=== PATIENT | male | born 1945 | race Caucasian/White ===

== ENCOUNTER 2017-05-21 08:41 | Observation (INO) | payer OTHER ==
--- NOTE | 2017-05-21 08:46 | EDPHY ---
H & P Time Seen by Provider: 05/21/17 08:46 - Medical/Surgical History Hx Diabetes: Yes - Social History Smoking Status: Never smoked Constitutional: Initial Vital Signs Temperature (C) 37 C 05/21/17 08:41 Heart Rate 73 05/21/17 08:41 Respiratory Rate 20 05/21/17 08:41 Blood Pressure 139/87 H 05/21/17 08:41 O2 Sat (%) 98 05/21/17 08:41 O2 Delivery Mode Room Air Allergies/Adverse Reactions: No Known Allergies Allergy (Verified 05/21/17 08:45) Home Medications: Medication Instructions Recorded Carbidopa/Levodopa 0.5 each PO BID 04/11/16 [Carbidopa-Levodopa 25-250 Tab] Donepezil HCl [Aricept] 5 mg PO 05/21/17 Ondansetron Odt [Zofran Odt 4 mg 4 mg PO Q4 PRN #10 tab 05/21/17 (RX)] Tamsulosin HCl [Flomax 0.4 MG (*)] 0.4 mg PO DAILY #10 cap 05/21/17 oxyCODONE IR [Oxycodone Ir (*)] 5 - 10 mg PO Q6 PRN #20 tab 05/21/17 Medical Decision Making - Diagnostics Imaging Results: Imaging Impressions Abdomen/Pelvis CT 05/21/17 09:12 Impression: 1. Moderate right-sided hydronephrosis secondary to right mid ureteral calculus at the level of the iliac crest measuring 4 x 3 mm transversely by 7 mm longitudinally. 2. Small bilateral nonobstructive renal calculi as detailed above. 3. Bilateral renal cysts. 4. Enlarged prostate. 5. Uncomplicated diverticulosis. Findings discussed with Cruz Wang MD at 9:49 hour, 05/21/2017. Attention: This CT examination is specifically designed to evaluate patients who are clinically suspected of having acute obstructive uropathy. This examination does not use radiographic contrast, and as such, provides only a limited evaluation of the abdomen, pelvis and retroperitoneum. If there is further clinical suspicion for pathological conditions other than obstructive uropathy, a complete CT evaluation of the abdomen and pelvis utilizing intravenous, oral, and rectal contrast should be considered. Imaging: Discussed imaging studies w/ calliope player Radiologist, I viewed and interpreted images myself ED Course/Re-evaluation: CHIEF COMPLAINT: Flank pain HISTORY OF PRESENT ILLNESS: The patient is a 71 y/o male, with a history of dementia and kidney stones, arriving with his complaining of severe right flank pain worsening over the last week. His pain waxes and wanes, but overall has been increasing in intensity since onset. He has been self-dosing aspirin for pain, but due to his short-term dementia it is not clear how much he has used. He has developed associated vomiting over the last day. He denies abdominal pain. He has a spinal surgery one year ago, but states his symptoms today are not similar. History is limited by patient's short-term dementia. REVIEW OF SYSTEMS: A 10 point review of systems was performed and is negative with the exception of the elements mentioned in the history of present illness. PHYSICAL EXAM: HR, BP, O2 Sat, RR. Temp noted General Appearance: Alert, well-hydrated, appropriate, and uncomfortable- appearing. Head: Atraumatic without scalp tenderness or obvious injury Eyes: Pupils equal, round, reactive to light and accommodation, EOMI, no trauma , no injection. Nose: Atraumatic, no rhinorrhea, clear. Throat: There is no erythema or exudates, no lesions, normal tonsils, mucus membranes moist. Neck: Supple,nontender, no lymphadenopathy. Respiratory: No retractions, no distress, no wheezes, and no accessory muscle use. Lungs are clear to auscultation bilaterally. Cardiovascular: Regular rate and rhythm, no murmurs, rubs, or gallops. Good capillary refill all extremities. Gastrointestinal: Abdomen is soft, mild RLQ tenderness, non-distended, no masses, no rebound, no guarding, no peritoneal signs. Musculoskeletal: Normal active ROM of all extremities, atraumatic. Right CVA tenderness. Neurological: Alert, appropriate, and interactive. Nonfocal neuro exam. Skin: No rashes, good turgor, no nodules on palpation. Past medical history: Short-term dementia, kidney stones Past surgical history: spinal surgery Family history: noncontributory Social history: at bedside. Urologist: Dr. Mancilla DIAGNOSTICS/PROCEDURES/CRITICAL CARE TIME: Abdominal CT: right side 7mm ureteral stone DIFFERENTIAL DIAGNOSIS: The differential diagnosis for the patient's flank pain and renal insufficiency included but was not limited to pre or post renal obstruction, heavy aspirin use, right ureteral stone, musculoskeletal causes, kidney stone, pyelonephritis, shingles, diverticulitis, appendicitis, and aortic aneurysm. MEDICAL DECISION MAKING: This is a 71 y/o male with a history of dementia and prior kidney stones who presents with a one-week history of worsening right flank pain. He is quite uncomfortable on exam with right CVA and RLQ tenderness. He is afebrile. Symptoms are most consistent with a kidney stone, but I also have concern for other intraabdominal process. Plan for IV, labs including salicylate level, UA, abdominal CT, and symptom management. 1mg IV Dilaudid, 4mg IV Zofran, 1L IV NS administered. CT shows right ureteral stone. I reassessed the patient and discussed work up. He is much more comfortable since medication administration. He has borderline renal insufficiency that could be from excessive aspirin use or obstructed ureter. I've advised him to discontinue aspirin and other NSAIDs for this pain. He will be given standard kidney stone care instructions and referral to urology. Scripts for OxyIR, Zofran, and Flomax. Return precautions given. He and his are comfortable with this plan. 1315: Consulted with Dr. Murphy, urologist. He will see patient as an outpatient in his clinic. 1330: As patient was preparing for discharge, he began to complain of intractable 10/10 pain and is unable to walk. He will require admission. Dr. Bender accepts admission. - Data Points Laboratory Results: Laboratory Results 05/21/17 08:55 05/21/17 08:55 05/21/17 05/21/17 05/21/17 12:35 08:55 08:55 WBC 7.52 10^3/uL 10^3/uL (3.80-9.50) RBC 5.06 10^6/uL 10^6/uL (4.40-6.38) Hgb 16.3 g/dL g/dL (13.7-17.5) Hct 48.8 % % (40.0-51.0) MCV 96.4 fL fL (81.5-99.8) MCH 32.2 pg pg (27.9-34.1) MCHC 33.4 g/dL g/dL (32.4-36.7) RDW 14.3 % % (11.5-15.2) Plt Count 182 10^3/uL 10^3/uL (150-400) MPV 9.0 fL fL (8.7-11.7) Neut % (Auto) 61.5 % % (39.3-74.2) Lymph % (Auto) 28.2 % % (15.0-45.0) [place] % (Auto) 7.6 % % (4.5-13.0) Eos % (Auto) 1.5 % % (0.6-7.6) Baso % (Auto) 0.8 % % (0.3-1.7) Nucleat RBC Rel Count 0.0 % % (0.0-0.2) Absolute Neuts (auto) 4.63 10^3/uL 10^3/uL (1.70-6.50) Absolute Lymphs (auto) 2.12 10^3/uL 10^3/uL (1.00-3.00) Absolute Monos (auto) 0.57 10^3/uL 10^3/uL (0.30-0.80) Absolute Eos (auto) 0.11 10^3/uL 10^3/uL (0.03-0.40) Absolute Basos (auto) 0.06 10^3/uL 10^3/uL (0.02-0.10) Absolute Nucleated RBC 0.00 10^3/uL 10^3/uL (0-0.01) Immature Gran % 0.4 % % (0.0-1.1) Immature Gran # 0.03 10^3/uL 10^3/uL (0.00-0.10) Sodium 141 mEq/L mEq/L (134-144) Potassium 3.9 mEq/L mEq/L (3.5-5.2) Chloride 105 mEq/L mEq/L (97-110) Carbon Dioxide 21 mEq/l L mEq/l (22-31) Anion Gap 15 mEq/L mEq/L (8-16) BUN 26 mg/dL H mg/dL (7-23) Creatinine 1.5 mg/dL H mg/dL (0.7-1.3) Estimated GFR 46 Glucose 177 mg/dL H mg/dL (70-100) Calcium 9.6 mg/dL mg/dL (8.5-10.4) Urine Color YELLOW Urine Appearance CLEAR Urine pH 5.0 (5.0-7.5) Ur Specific [place] 1.026 (1.002-1.030) Urine Protein NEGATIVE (NEGATIVE) Urine Ketones TRACE H (NEGATIVE) Urine Blood 1+ H (NEGATIVE) Urine Nitrate NEGATIVE (NEGATIVE) Urine Bilirubin NEGATIVE (NEGATIVE) Urine Urobilinogen NEGATIVE EU EU (0.2-1.0) Ur Leukocyte Esterase NEGATIVE (NEGATIVE) Urine RBC 15-25 /hpf H /hpf (0-3) Urine WBC 1-3 /hpf /hpf (0-3) Ur Epithelial Cells NONE SEEN /lpf /lpf (NONE-1+) Urine Mucus TRACE /lpf /lpf (NONE-1+) Urine Glucose NEGATIVE (NEGATIVE) Salicylates 1.8 mg/dL L mg/dL (2.0-20.0) Medications Given: Discontinued Medications Hydromorphone HCl (Dilaudid) 1 mg IVP EDNOW ONE Stop: 05/21/17 09:11 Last Admin: 05/21/17 09:23 Dose: 1 mg Hydromorphone HCl (Dilaudid) 1 mg IVP EDNOW ONE Stop: 05/21/17 13:07 Last Admin: 05/21/17 13:11 Dose: 1 mg Sodium Chloride (Ns) 1,000 mls @ 0 mls/hr IV ONCE ONE PRN Reason: Wide Open Stop: 05/21/17 09:32 Last Admin: 05/21/17 09:36 Dose: 1,000 mls Ondansetron HCl (Zofran) 4 mg IVP EDNOW ONE Stop: 05/21/17 09:11 Last Admin: 05/21/17 09:22 Dose: 4 mg Ondansetron HCl (Zofran) 4 mg IVP EDNOW ONE Stop: 05/21/17 12:47 Last Admin: 05/21/17 13:12 Dose: Not Given Departure - Departure Disposition: [facility] Acute Clinical Impression: Kidney stone on right side, Intractable pain Condition: Fair Instructions: Kidney Stones (ED), How to Strain Your Urine (ED) Additional Instructions: 1. Do not take aspirin or ibuprofen/Motrin anymore for this pain. 2. OxyIR as needed for severe pain 3. Flomax as directed 4. Zofran as needed for nausea 5. Strain urine as directed 6. Return to the Emergency Department for intractable pain, fever or vomiting. 7. Please contact the urologist you have been referred to schedule a follow-up visit or with the [place] urologist. Referrals: NOT,SURE [Other] - As per Instructions Jose Mancilla MD [Medical Doctor] - As per Instructions Prescriptions: Ondansetron Odt [Zofran Odt 4 mg (RX)] 4 mg PO Q4 PRN #10 tab PRN Reason: Nausea/Vomiting, Use 1st oxyCODONE IR [Oxycodone Ir (*)] 5 - 10 mg PO Q6 PRN #20 tab PRN Reason: Pain, Severe Tamsulosin HCl [Flomax 0.4 MG (*)] 0.4 mg PO DAILY #10 cap Report Scribed for: Cruz Wang Report Scribed by: Mere Zayas Date of Report: 05/21/17 Time of Report: 09:19
[2017-05-21] MEDS ORDERED: HYDROmorphONE/DILAUDID 1 MG/ML SYR IVP ONE ×2 (09:10→13:06)
[2017-05-21] MEDS ORDERED: ONDANSETRON 4 MG/2 ML VIAL IVP ONE (09:10)
[2017-05-21 09:14] LABS: % IMMATURE GRANULYOCYTES 0.4 % (0.0-1.1); ABSOLUTE IMMATURE GRANULOCYTES 0.03 10^3/uL (0.00-0.10); ADD DIFF? NO; ADD MORPH? NO; ADD SCAN? NO; ATYPICAL LYMPHOCYTE FLAG 10 (0-99); FRAGMENT RBC FLAG 0 (0-99); HEMATOCRIT 48.8 % (40.0-51.0); HEMOGLOBIN 16.3 g/dL (13.7-17.5); LEFT SHIFT FLG 0 (0-99); LIPEMIA HEMOLYSIS FLAG 80 (0-99); MEAN CELL HEMOGLOBIN 32.2 pg (27.9-34.1); MEAN CELL HEMOGLOBIN CONCENTR. 33.4 g/dL (32.4-36.7); MEAN CELL VOLUME 96.4 fL (81.5-99.8); PLATELET CLUMPS FLAG 0 (0-99); PLATELET COUNT 182 10^3/uL (150-400); RED BLOOD CELL COUNT 5.06 10^6/uL (4.40-6.38); RED CELL DISTRIBUTION WIDTH 14.3 % (11.5-15.2)
[2017-05-21 09:28] LABS: ANION GAP 15 mEq/L (8-16); CARBON DIOXIDE 21 mEq/l (22-31); CHLORIDE 105 mEq/L (97-110); CREATININE 1.5 mg/dL (0.7-1.3); GLOMERULAR FILTRATION RATE 46; GLUCOSE 177 mg/dL (70-100); POTASSIUM 3.9 mEq/L (3.5-5.2); SODIUM 141 mEq/L (134-144)
[2017-05-21 09:29] LABS: CALCIUM 9.6 mg/dL (8.5-10.4); SALICYLATE 1.8 mg/dL (2.0-20.0)
[2017-05-21] MEDS ORDERED: NS 1,000 ML IV ONE (09:31)
[2017-05-21] MEDS: ONDANSETRON 4 MG/2 ML VIAL IVP ONE ×2 (12:50→13:12)
[2017-05-21 12:52] LABS: COLOR YELLOW; LEUKOCYTE ESTERASE,URINE NEGATIVE (NEGATIVE); NITRITE,URINE NEGATIVE (NEGATIVE)
[2017-05-21 12:56] LABS: MUCUS TRACE /lpf (NONE-1+); RBC,URINE 15-25 /hpf (0-3)
[2017-05-21] MEDS ORDERED: HYDROmorphONE/DILAUDID 1 MG/ML SYR IVP PRN ×2 (13:04→13:42)
[2017-05-21] MEDS ORDERED: ONDANSETRON 4 MG/2 ML VIAL IVP PRN (13:41)
[2017-05-21] MEDS ORDERED: ONDANSETRON DISINTEGRATING 4 MG TAB PO PRN (13:41)
[2017-05-21] MEDS ORDERED: ACETAMINOPHEN 325 MG TAB PO PRN (13:41)
[2017-05-21] MEDS: NS 1,000 ML IV SCH ×2 (14:33→23:45)
--- NOTE | 2017-05-21 15:14 | GHP ---
[f rep st] HISTORY AND PHYSICAL DATE OF ADMISSION: 05/21/2017 CHIEF COMPLAINT: Right flank pain. HISTORY OF PRESENT ILLNESS: Patient is a 71-year-old male, with history of lumbar stenosis, dementi a and prior kidney stones arriving with his complaining of severe right flank pain. This has p rogressed over the last week. He says it waxes and wanes but is overall very sharp. He has been us ing aspirin for pain relief up to 4 times a day. He had some mild nausea over the past 24 hours. H e denies dysuria, hematuria. No fevers, chills or sweats. No diarrhea. REVIEW OF SYSTEMS: I completed a 10-point review of systems, negative except as noted in HPI. PAST MEDICAL HISTORY: 1. L4 through S1 lumbar fusion. 2. Sciatica. 3. Lumbar stenosis. 4. Kidney stones. 5. Dementia. FAMILY HISTORY: Mother of breast cancer. Father had Parkinson's. SOCIAL HISTORY: Lives in [place] with his Dee. He has been almost 50 years. Has 2 daughters. No illicits, tobacco or alcohol. Was a nurse in [place]. ALLERGIES: None. PHYSICAL EXAM: VITAL SIGNS: Temperature 36.2, blood pressure 138/78, heart rate 70s, respirations 17, 98% on room air. GENERAL: Patient is lying in bed, in no acute distress. HEENT: Pupils are s mall, but round, reactive. Mildly dry mucous membranes. CV: Regular rate and rhythm. No murmurs, gallops, or rubs. LUNGS: Clear to auscultation bilaterally. ABDOMEN: Soft, nontender, nondisten ded. : No suprapubic tenderness, but right flank pain with palpation. NEURO: [address] PSYCH: Alert and oriented x3. Somnolent with pain medications. LABS: Sodium 141, potassium 3.9, chloride 105, carbon dioxide 21, BUN 26, creatinine is 1.5 with ba seline of 1. Glucose 177, calcium 9.6. UA: +1 blood, 15-25 WBCs. Salicylates 1.8. WBC 7, hemogl obin 16, hematocrit 48, platelets 182. CT abdomen and pelvis: Moderate right-sided hydronephrosis with dilated right ureter to the level o f the iliac crest where there is a mid right ureteral calculus measuring 4 x 3 mm and 7 mm longitudi kirit. Bilateral small renal calculi measuring 1-2 mm, 2 apparent on the right and 3 on the left. There has been an interval increase in size of the dominant cyst in the upper pole of the right kidn ey, now 7.8 cm, previously 6 mm. Enlarged prostate. Uncomplicated diverticulosis. ASSESSMENT AND PLAN: 1. Ureteral calculus at the level of the iliac crest. Pain is currently controlled with IV Dilaudi d given acute kidney injury. There is moderate right-sided hydronephrosis. Dr. Murphy with urology has been consulted. Will hydrate. Continue pain control. 2. Renal cysts, slightly larger in the right pole since previous. 3. Acute flank pain: Secondary to stone. Controlled with IV Dilaudid. No NSAIDs with acute kidne y injury. 4. Acute kidney injury: Baseline creatinine is now 1.5. Query secondary to dehydration. 5. Diet: Regular. 6. Deep venous thrombosis prophylaxis. SCDs. DISPOSITION: Patient warrants observation admission given acute pain secondary to stone. Urology t o consult. Will continue IV opioids and fluids. /[id number]/MODL
[2017-05-21] MEDS ORDERED: ceFAZolin 2 GM/DEXTROSE 100 ML IV ONE (17:17)
[2017-05-21 19:15] LABS: HEMATOCRIT 43.1 % (40.0-51.0); HEMOGLOBIN 14.6 g/dL (13.7-17.5); MEAN CELL HEMOGLOBIN CONCENTR. 33.9 g/dL (32.4-36.7); MEAN CELL VOLUME 97.5 fL (81.5-99.8); RED BLOOD CELL COUNT 4.42 10^6/uL (4.40-6.38); RED CELL DISTRIBUTION WIDTH 14.1 % (11.5-15.2)
[2017-05-21] MEDS: CARBIDOPA/LEVO CR 50 MG/200 MG TAB PO SCH (20:17)
[2017-05-21 20:33] VITALS: RESP 16
[2017-05-21] MEDS ORDERED: DONEPEZIL HCL 5 MG TAB PO SCH (21:00)
--- NOTE | 2017-05-21 21:28 | GCON ---
[f rep st] CONSULTATION DATE OF CONSULTATION: 05/21/2017 REFERRING PHYSICIAN: Brenda Bender MD REASON FOR CONSULTATION: Right ureteral calculus. HISTORY OF PRESENT ILLNESS: I am asked to see this 71-year-old male, who presented to the emergency room with right flank pain, and was found to have an obstructing 3 x 4 x 7 mm right mid ureteral st one. The patient required ongoing pain control, so was admitted for further management. PAST MEDICAL HISTORY: Positive for lumbar stenosis, kidney stones, dementia. FAMILY SOCIAL HISTORY: Noncontributory. EXAM: GENERAL APPEARANCE: Patient is alert, oriented. He is in no acute distress. CHEST: Asymme tric chest wall excursions. Unlabored respirations. HEART: Rate is regular. ABDOMEN: Soft, nont phil. He has no CVA tenderness. EXTREMITIES: No peripheral edema. NEUROLOGIC: No gross neurolo gic deficits. DATA: Review of CT scan showed moderate right-sided hydronephrosis to the iliac crest, where the 4 x 3 x 7 mm stone is identified. He also has some small renal calculi, 1-2 mm, in each kidney. IMPRESSION: Obstructing right ureteral calculus. PLAN: Due to the size of the stone location, with poor probability of passage, and ongoing need for parenteral pain control, options were discussed, and we will proceed with right ureteroscopy laser lithotripsy, stone extraction, and stent placement in the morning, 05/18/2017. /[id number]/MODL
[2017-05-22 06:25] LABS: ANION GAP 10 mEq/L (8-16); CALCIUM 8.9 mg/dL (8.5-10.4); CARBON DIOXIDE 22 mEq/l (22-31); CHLORIDE 109 mEq/L (97-110); CREATININE 1.2 mg/dL (0.7-1.3); GLOMERULAR FILTRATION RATE 60; GLUCOSE 123 mg/dL (70-100); POTASSIUM 4.3 mEq/L (3.5-5.2); SODIUM 141 mEq/L (134-144)
[2017-05-22] MEDS ORDERED: MIDAZOLAM 2 MG/2 ML VIAL IVP ONE (06:59)
[2017-05-22] MEDS ORDERED: IOPAMIDOL (ISOVUE-M 300) 15 ML VIAL ONE (07:02)
--- NOTE | 2017-05-22 07:02 | PDANEPAE ---
ANE History of Present Illness ureteroscopy for R ureteral stone ANE Past Medical History - Cardiovascular History Hx Hypertension: No Hx Arrhythmias: No Hx Chest Pain: No Hx Coronary Artery / Peripheral Vascular Disease: No Hx CHF / Valvular Disease: No Hx Palpitations: No - Pulmonary History Hx COPD: No Hx Asthma/Reactive Airway Disease: No Hx Recent Upper Respiratory Infection: No Hx Oxygen in Use at Home: No Hx Sleep Apnea: Yes Sleep Apnea Screening Result - Last Documented: Positive Pulmonary History Comment: URBAN USES C-PAP. 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 PREV KIDNEY STONES - Liver History Hx Hepatic Disorders: No - Neurological & Psychiatric Hx Hx Neurological and Psychiatric Disorders: Yes Neurological / Psychiatric History Comment: PTSD TREATED WITH ACCUPUNCTURE - Cancer History Hx Cancer: No - Congenital Disorder History Hx Congenital Disorders: No - GI History Hx Gastrointestinal Disorders: Yes Gastrointestinal History Comment: DIVERTICULOSIS. GI ULCER - Other Health History Other Health History: DDD. PERIPHERAL NEUROPATHY. TINITUS. STASIS DERMATITIS /ECZEMA. OSTEOARTHRITIS. ROGER CATARACTS - Chronic Pain History Chronic Pain: Yes (ROGER LEGS,NUMB FEELING) - Surgical History Prior Surgeries: DENTAL EXTRACTION. EPIDURALS ANE Review of Systems - Exercise capacity METS (RN): 4 METS ANE Patient History - Allergies Allergies/Adverse Reactions: No Known Allergies Allergy (Verified 05/21/17 08:45) - Home Medications Home Medications: Acetaminophen [Tylenol 325mg (*)] 325 mg PO Q6 PRN 05/21/17 [Last Taken Unknown] Aspirin [Aspirin 325 mg (*)] 325 mg PO DAILY PRN 05/21/17 [Last Taken 05/21/17] Carbidopa/Levo Cr 50/200Mg [SINEMET CR 50/200 MG (*)] 0.5 tab PO BID 05/21/17 [ Last Taken 05/20/17] Cholecalciferol Vit D3 [Vitamin D3 (*)] 2,000 units PO DAILY 05/21/17 [Last Taken 05/21/17] Donepezil HCl [Aricept] 5 mg PO HS 05/21/17 [Last Taken 05/20/17] Herbals/Supplements -Info Only 1 ea PO DAILY 05/21/17 [Last Taken Unknown] - NPO status NPO Since - Liquids (Date): 05/21/17 NPO Since - Liquids (Time): 00:00 NPO Since - Solids (Date): 05/21/17 NPO Since - Solids (Time): 00:00 - Anes Hx Anes Hx: no prior problems - Smoking Hx Smoking Status: Never smoked Marijuana use: No - Alcohol Use Alcohol Use: Rarely ANE Labs/Vital Signs - Labs Result Diagrams: 05/21/17 19:05 05/22/17 05:41 - Vital Signs Blood Pressure: 95/59 Heart Rate: 86 Respiratory Rate: 16 O2 Sat (%): 93 Height: 165.1 cm Weight: 74 kg ANE Physical Exam - Airway Mallampati Score: Class 2 Mouth exam: poor dentition - Pulmonary Pulmonary: no respiratory distress - Cardiovascular Cardiovascular: regular rate and rhythym - ASA Status ASA Status: II ANE Anesthesia Plan Anesthesia Plan: GA w LMA (all questions answered)
--- NOTE | 2017-05-22 07:12 | PDHPUP ---
History & Physical Update H&P update statement: This history and physical update is based on an assessment of the patient which was completed after admission or registration (within 24 hours), but prior to the surgery/procedure. H&P update: H&P reviewed & patient examined
[2017-05-22] MEDS ORDERED: PROPOFOL/EMULSION 500 MG/50 ML BOTTLE IV ONE (07:17)
[2017-05-22] MEDS ORDERED: DEXAMETHASONE 4 MG/ML VIAL ONE ×2 (07:17→07:18)
[2017-05-22] MEDS ORDERED: fentaNYL 100 MCG/2 ML INJ ONE ×2 (07:17→08:40)
[2017-05-22] MEDS ORDERED: LIDOCAINE 2% 5 ML SDV ONE (07:18)
[2017-05-22] MEDS ORDERED: ONDANSETRON 4 MG/2 ML VIAL ONE (07:18)
[2017-05-22] MEDS ORDERED: LIDOCAINE 2% JELLY 5 ML TUBE ONE (07:18)
[2017-05-22] MEDS ORDERED: ceFAZolin 2 GM/DEXTROSE 100 ML IV ONE (07:30)
[2017-05-22] MEDS ORDERED: epHEDrine SULFATE 10 MG/ML SYR ONE ×2 (07:32)
[2017-05-22] MEDS ORDERED: ONDANSETRON 4 MG/2 ML VIAL IVP PRN (08:11)
[2017-05-22] MEDS ORDERED: DEXAMETHASONE 4 MG/ML VIAL IVP PRN (08:11)
[2017-05-22] MEDS ORDERED: MEPERIDINE 25 MG/ML SYR IVP PRN (08:11)
[2017-05-22] MEDS ORDERED: LR 500 ML IV PRN (08:11)
[2017-05-22] MEDS ORDERED: LABETALOL HCL 50 MG/10 ML SYR IVP PRN (08:11)
[2017-05-22] MEDS ORDERED: PROMETHAZINE HCL 25 MG/ML INJ IVP PRN (08:11)
[2017-05-22] MEDS ORDERED: METOCLOPRAMIDE 10 MG/2 ML VIAL IVP PRN (08:11)
[2017-05-22] MEDS ORDERED: fentaNYL 100 MCG/2 ML INJ IVP PRN (08:11)
[2017-05-22] MEDS ORDERED: NALOXONE HCL 0.4 MG/ML INJ IVP PRN (08:11)
[2017-05-22] MEDS ORDERED: ALBUTEROL 3 ML DEYVIAL IH PRN (08:11)
[2017-05-22] MEDS ORDERED: HYDROCODONE/APAP 5/325 TAB PO PRN (08:11)
[2017-05-22] MEDS ORDERED: OXYCODONE/APAP 5/325 TAB PO PRN (08:11)
[2017-05-22] MEDS ORDERED: ACETAMINOPHEN 500 MG TAB PO PRN (08:11)
--- NOTE | 2017-05-22 08:12 | HOSPPROG ---
Hospitalist Progress Note Assessment/Plan: #Ureteral stone: s/p stent #Acute flank pain #Dementia: cont home meds Disp: DC today Subjective: pain improved Objective: Vital Signs Temp Pulse Resp BP Pulse Ox 36.6 C 86 16 95/59 L 93 05/22/17 07:21 05/22/17 07:21 05/22/17 07:21 05/22/17 07:21 05/22/17 07:21 Laboratory Results 05/21/17 19:05 05/22/17 05:41 05/21/17 05/22/17 05/23/17 05:59 05:59 05:59 Intake Total 2560 Output Total 1750 Balance 810 - Physical Exam Constitutional: no apparent distress Eyes: PERRL Ears, Nose, Mouth, Throat: moist mucous membranes Cardiovascular: regular rate and rhythym Respiratory: no respiratory distress Gastrointestinal: normoactive bowel sounds Genitourinary: no bladder fullness, other (urteral stent in urethra) Neurologic: AAOx3 Psychiatric: interacting appropriately ICD10 Worksheet Patient Problems: Problems Problem Status Onset Arthrodesis status Acute Intractable pain Acute Kidney stone on right side Acute Lumbago Acute Lumbar radiculitis Acute Lumbar stenosis Acute
--- NOTE | 2017-05-22 08:13 | POSTANESTH ---
Post Anesthetic Evaluation Cardiovascular Status: Normal, Stable Respiratory Status: Normal, Stable Level of Consciousness/Mental Status: Can Participate in Eval Pain Control: Adequate, Prn Tx Ordered Nausea/Vomiting Control: Adequate, Prn Tx Ordered Complications Possibly Related to Anesthesia: None Noted
--- NOTE | 2017-05-22 08:17 | POSTOPPROG ---
Post Op Note Date of Operation: 05/22/17 Surgeon: Jourdan Murphy Anesthesia: LMA Pre-op Diagnosis: Right ureteral calculus Post-op Diagnosis: same Procedure: right ureteroscopy, laser lithotripsy, stone extraction, stent placement Findings: 3x4x7 mm mid right ureteral stone Inf/Abcess present in the surg proc area at time of surgery?: No EBL: Minimal
[2017-05-22] MEDS: fentaNYL 100 MCG/2 ML INJ IVP PRN ×2 (08:42→08:53)
--- NOTE | 2017-05-22 08:45 | GOP ---
[f rep st] OPERATIVE REPORT DATE OF OPERATION: 05/22/2017 SURGEON: Jourdan Murphy MD PREOPERATIVE DIAGNOSIS: Right ureteral calculus. POSTOPERATIVE DIAGNOSIS: Right ureteral calculus. PROCEDURE PERFORMED: Right ureteroscopy with laser lithotripsy, stone extraction, and stent placeme nt. FINDINGS: INDICATIONS: The patient is a 71-year-old male, who was admitted with a 3 x 4 x 7 mm obstructing ri ght mid ureteral stone. Due to ongoing pain, options were discussed. He elected to undergo stone e xtraction. DESCRIPTION OF PROCEDURE: After informed consent, with general LMA anesthesia, the patient was plac ed in the lithotomy position, with his genitalia sterilely prepped and draped. After passing a Sens or guidewire into the right renal pelvis, the semi-rigid scope was advanced to the level of stone. A 200 micron holmium laser fiber at 8 nogueira of energy was used to fragment the stone. These fragmen ts were removed with a Nitinol basket. They were left within the bladder. The scope was then advan sadiq more proximally, where no other stone fragments were seen. The collecting system was opacified. The scope was removed, and a 6-Swazi variable length stent was placed, with the withdrawal string left in place as a dangle. Patient was awakened and transferred to the recovery in stable condition. There were no intraoperat ivan complications or blood loss. Patient will capture his stones for analysis. /[id number]/MODL
[2017-05-22] MEDS ORDERED: LIDOCAINE 2% JELLY 5 ML TUBE TP PRN (08:51)
[2017-05-22] MEDS ORDERED: CHOLECALCIFEROL VIT D3 1,000 UNITS TAB PO SCH (09:00)
[2017-05-22] MEDS ORDERED: Herbals/Supplements -Info Only PO SCH (09:00)
--- NOTE | 2017-05-22 10:24 | PDIAF ---
- Diagnosis Diagnosis: ureteral stone Code Status: Full Code - Medication Management Discharge Medications: Medications to Continue on Transfer Acetaminophen [Tylenol 325mg (*)] 325 mg PO Q6 PRN 05/21/17 [Last Taken Unknown] Aspirin [Aspirin 325 mg (*)] 325 mg PO DAILY PRN 05/21/17 [Last Taken 05/21/17] Carbidopa/Levo Cr 50/200Mg [SINEMET CR 50/200 MG (*)] 0.5 tab PO BID 05/21/17 [ Last Taken 05/20/17] Cholecalciferol Vit D3 [Vitamin D3 (*)] 2,000 units PO DAILY 05/21/17 [Last Taken 05/21/17] Herbals/Supplements -Info Only 1 ea PO DAILY 05/21/17 [Last Taken Unknown] Donepezil HCl [Aricept 5 MG (*)] 5 mg PO HS tab 05/22/17 [Last Taken Unknown] Hydrocodone/APAP 5/325 [[place] 5/325 (*)] 1 - 2 tab PO Q6H PRN #20 tab 05/22/17 [ Last Taken Unknown] Lidocaine 2% Jelly [Lidocaine 2% Jelly (*)] 1 jaxon TP TID PRN #1 jelly 05/22/17 [ Last Taken Unknown] Discharge Medications: Refer to the Discharge Home Medication list for PRN reason. - Orders Services needed: Physical Therapy Diet Recommendation: no restrictions on diet Diet Texture: Regular Texture Diet - Follow Up Care Current Providers and Referrals: NOT,SURE [Other] - As per Instructions Jose Mancilla MD [Medical Doctor] - As per Instructions
[2017-05-22] MEDS: CARBIDOPA/LEVO CR 50 MG/200 MG TAB PO SCH (10:32)
[2017-05-22 10:33] VITALS: BP 111/69; PULSE 80; TEMP 97.6; O2SAT 90
--- NOTE | 2017-05-22 10:51 | GDS ---
[f rep st] DISCHARGE SUMMARY DISCHARGE DIAGNOSES: 1. Right ureteral calculus. 2. Right flank pain. 3. Dementia. 4. History of sciatica. 5. History of kidney stones. 6. Acute kidney injury. HISTORY OF PRESENT ILLNESS: a 71-year-old male with history of lumbar stenosis, dementia, and prior kidney stones, arriving with his , complaining of severe right pain for 1 week. This has been progressive and sharp in nature. He says it waxes and wanes. He has been using aspirin for pain relief, up to 4 times a day. He has had some mild nausea. No emesis or diarrhea. Denies dysuria or hematuria. No fevers, chills or sweats. HOSPITAL COURSE BY PROBLEM: 1. Right ureteral stone: Moderate hydronephrosis. s/p ureteroscopy with laser lithotripsy, stone extraction, and stent placement. FU with Dr. Murphy Sunday. 2. ANGELINA: This is likely secondary to decreased p.o. intake. He was hydrated with improvement of creatinine. Advised to avoid NSAIDs. 3. Acute pain, p.r.n. Tylenol at discharge. Topical lidocaine gel. 4. History of lumbar stenosis, stable. DISPOSITION: Patient is stable for discharge. FOLLOWUP: Dr. Muprhy. /[id number]/MODL MTDD
== END 2017-05-22 12:24 | disposition home or self-care (01) ==
LOC: F1N 14:11
PROVIDERS: ADMIT Internal Medicine; ATTEND Internal Medicine
PROC: 0TC38ZZ Extirpation of Matter from Right Kidney Pelvis, Via Natural or Artificial Opening Endoscopic (ICD-10-PCS; principal; 2017-05-22 07:15)
PROC: 0T768DZ Dilation of Right Ureter with Intraluminal Device, Via Natural or Artificial Opening Endoscopic (ICD-10-PCS; principal; 2017-05-22 07:15)
PROC: 0TF48ZZ Fragmentation in Left Kidney Pelvis, Via Natural or Artificial Opening Endoscopic (ICD-10-PCS; principal; 2017-05-22 07:15)
DX: N13.2 Hydronephrosis with renal and ureteral calculous obstruction (principal); R10.9 Unspecified abdominal pain; F03.90 Unspecified dementia, unspecified severity, without behavioral disturbance, psychotic disturbance, mood disturbance, and anxiety; M54.30 Sciatica, unspecified side; N17.9 Acute kidney failure, unspecified; M48.06 Spinal stenosis, lumbar region; N40.0 Benign prostatic hyperplasia without lower urinary tract symptoms; N28.1 Cyst of kidney, acquired; K57.30 Diverticulosis of large intestine without perforation or abscess without bleeding; Z98.1 Arthrodesis status; Z87.442 Personal history of urinary calculi
CPT/HCPCS: 52356; 74176; 76001; 96361; 96374; 96375; 96376; 97161; 99285; C1769; G0378; G8978; G8979; G8980; C2625; G0480; J0690; J1100; J1170; J2250; J2405; J2704; J3010; Q9967